=== PATIENT | male | born 1965 | race Caucasian/White ===

== ENCOUNTER 2025-04-03 09:42 | Outpatient (CLI) | payer OTHER, SELFPAY ==
--- NOTE | 2025-04-03 10:15 | MR_ITS ---
[address] [address] Phone:?[phone] Fax:?[phone] Referring Physician Information: Janelle Scott [address] [facility] [address] Phone:?[phone] Fax:?[phone] Patient:Shakila Garcia D.O.B:?1965 Sex:?Male Phone:?[phone] [facility] MRN:?[id number] Exam Date:?04/03/2025 EXAM: MRI of the LEFT SHOULDER WITHOUT CONTRAST CLINICAL HISTORY: Ongoing decreased range of motion of the left shoulder. Injury pushing something at work. COMPARISONS: Plain radiographs 03/20/2025. TECHNICAL: MRI sequences of the left shoulder: Axials: PD, T2 Coronals: PD, STIR, T2 Sagittals: PD, T2 SEDATION: None CONTRAST: None FINDINGS: Bones: No fracture or suspicious bone marrow signal abnormality. Coracoacromial arch: Acromion: No os acromiale. Type I-II acromion. Acromioclavicular joint: Marked osteoarthritis. Coracoclavicular ligament: The coracoclavicular ligament is intact. Rotator cuff muscles/tendons: Supraspinatus: Extensive ill-defined intrasubstance/interstitial partial tearing throughout the supraspinatus tendon superimposed upon moderate supraspinatus tendinopathy. No muscular atrophy. Infraspinatus: The infraspinatus tendon and muscle are intact. Teres minor: The teres minor tendon and muscle are intact. Subscapularis: 1.0 x 1.0 cm split longitudinal intrasubstance/interstitial tear within the superior portion of the subscapularis tendon insertion superimposed upon marked subscapularis tendinopathy. No muscular atrophy. Labrum and glenohumeral joint: Extensive ill-defined tearing of the anterior, anteroinferior, and inferior portions of the labrum and fraying of the posterosuperior portion of the labrum. Physiologic amount of joint fluid. No discrete chondral defect or subchondral bone marrow edema/cystic change is seen. No convincing evidence of capsular edema or thickening although evaluation is suboptimal because of lack of joint distention. Proximal biceps tendon, long head and short heads: Medial dislocation of the proximal long head of the biceps tendon from the bicipital groove extending into the split longitudinal intrasubstance/interstitial subscapularis tendon tear. The short head is intact. Bursae: Subacromial/subdeltoid: No convincing subacromial bursal thickening/bursitis. Subcoracoid: No convincing subcoracoid bursal thickening/bursitis. IMPRESSION: 1. 1.0 x 1.0 cm split longitudinal intrasubstance/interstitial tear within the superior portion of the subscapularis tendon insertion superimposed upon marked subscapularis tendinopathy. 2. Medial dislocation of the proximal long head of the biceps tendon from the bicipital groove extending into the split longitudinal intrasubstance/interstitial subscapularis tendon tear. 3. Extensive ill-defined intrasubstance/interstitial partial tearing throughout the supraspinatus tendon superimposed upon moderate supraspinatus tendinopathy. 4. Extensive ill-defined tearing of the anterior, anteroinferior, and inferior portions of the labrum and fraying of the posterosuperior portion of the labrum. 5. Marked acromioclavicular joint osteoarthritis. 6. No rotator cuff muscular atrophy. RCB Electronically signed on 04/03/2025 12:10:00 PM by Leonardo Doty M.D.
== END 2025-04-03 09:43 | disposition home or self-care (01) ==
LOC: MRI 09:45
PROVIDERS: Visit Provider Physician Assistant Surgical
DX: M25.512 Pain in left shoulder (principal); S43.432A Superior glenoid labrum lesion of left shoulder, initial encounter; M75.102 Unspecified rotator cuff tear or rupture of left shoulder, not specified as traumatic; M19.012 Primary osteoarthritis, left shoulder; S49.92XA Unspecified injury of left shoulder and upper arm, initial encounter
CPT/HCPCS: 73221

== ENCOUNTER 2025-06-01 06:48 | Day surgery (SDC) | payer OTHER, SELFPAY ==
[2025-06-01] VITALS (17 sets, daily range): BP systolic 106–143; BP diastolic 73–94; PULSE 67–78; RESP 16; TEMP 36.2–36.7; O2SAT 92–98; BMI 36.9
--- NOTE | 2025-06-01 07:11 | W.PM.H&PU ---
History & Physical Update History & Physical Update H&P Reviewed and patient assessed: No changes noted
[2025-06-01] MEDS: EPINEPHrine 1 MG in SODIUM CHLORIDE IRRIG SOLUTION 3,000 ML 9003 MG IRRIGATION ×5 (07:15→10:05)
[2025-06-01] MEDS: LACTATED RINGERS 1000 ML 1,000 ML 100 ML IV ×2 (07:30→10:36)
[2025-06-01] MEDS: SODIUM CHLORIDE 0.9 % (FLUSH) 10 ML SYRINGE IVF (07:59)
[2025-06-01] MEDS: INSULIN REGULAR, HUMAN 100 UNIT/ML VIAL 10 UNIT SUBCUT ×2 (08:03→12:56)
[2025-06-01] MEDS: MIDAZOLAM HCL 1 MG/ML inj IVP (08:29)
--- NOTE | 2025-06-01 08:36 | SUR.PREOP ---
TIME?OUT:?0825 PT/RN/MDA?VERIFICATION?OF?SURGICAL?SITE,?PROCEDURE,?AND?CONSENT OBTAINED?PRIOR?TO?INVASIVE?PROCEDURE.
[2025-06-01] MEDS: SODIUM CHLORIDE IRRIG SOLUTION 3,000 ML, EPINEPHrine 1 MG IRRIGATION (11:00)
[2025-06-01] MEDS: EPINEPHrine 1 MG in SODIUM CHLORIDE IRRIG SOLUTION 3,000 ML 6000 MG IRRIGATION (11:00)
--- NOTE | 2025-06-01 11:14 | PM.ORPRC ---
Procedure Note Date of procedure: 06/01/25 Procedure: PREOPERATIVE DIAGNOSES: 1. Left shoulder rotator cuff tear. 2. Left shoulder long head of biceps partial-thickness tearing with subluxation / dislocation of the bicipital groove 3. Left shoulder AC joint arthrosis, primary, moderate -severe 4. Left shoulder subacromial impingement syndrome. POSTOPERATIVE DIAGNOSES: 1. Left shoulder rotator cuff tear. 2. Left shoulder long head of biceps partial-thickness tearing with subluxation / dislocation of the bicipital groove 3. Left shoulder AC joint arthrosis, primary, moderate -severe 4. Left shoulder anterior labral tearing distinctly separate from the biceps pathology and more than just degenerative type tearing 5. Left shoulder subacromial impingement syndrome. NAME OF OPERATION: 1. Left shoulder arthroscopic rotator cuff repair. 2. Left shoulder arthroscopic long of the biceps tenodesis 3. Left shoulder arthroscopic distal clavicle excision 4. Left shoulder arthroscopic limited glenohumeral debridement 5. Left shoulder arthroscopic bursectomy, subacromial decompression/partial acromioplasty. SURGEON: Juwan Mahan MD MANAGER SOFTWARE: Justus Sneed PA-C. Of note, a skilled medical assistant dermatology was critical for this case to aide in patient positioning, suture manipulation, arm positioning, instrument positioning, and closure. ANESTHESIA: General plus preoperative supraclavicular block. EBL: 50 mL IMPLANTS: Arthrex 4.75 mm BioComposite SwiveLock suture anchor (x2) COMPLICATIONS: None evident INDICATIONS: The patient is a pleasant, 60-year-old male who has experienced left shoulder pain that has been increasing in recent time. Physical exam and imaging were consistent with a rotator cuff tear. Given their findings, as well as the weakness and pain, and inadequate response to nonoperative management, recommendation was made for surgery. FINDINGS: Exam under anesthesia revealed stable shoulder with excellent range of motion. The diagnostic arthroscopy revealed healthy chondral surfaces of the glenohumeral joint. The Subscapularis tendon was torn from its upper border with mild-moderate retraction. The long head of the biceps tendon was torn in a partial-thickness manner with subluxation/dislocation of the bicipital groove. The superior rotator cuff tendon was found to be torn in a partial-thickness manner on the anterior aspect of the supraspinatus. The labrum was torn somewhat significantly of the anterior labral tissue. This was distinctly separate from the biceps pathology. This also did not appear to be degenerative in nature, but rather possibly traumatic given some hemorrhagic tissue in the vicinity. No loose bodies were identified within the pouch or subscapularis recess. PROCEDURE: Following a thorough discussion of risks, benefits, and alternatives, consent was obtained and the left shoulder was marked. The patient was brought to the operating room and placed supine on the operating table. Induction of anesthesia was completed after preoperative supraclavicular block was administered in preop holding. Appropriate time out was performed identifying proper patient, site, and procedure. 3 g IV Ancef was administered within 1 hour of incision preoperatively. The left upper extremity was prepped and draped in the appropriate sterile fashion using ChloraPrep prep. This was after the patient was positioned in the beach chair with their head in neutral alignment and all bony prominences well padded. The shoulder was insufflated with 20mL of normal saline via an 18g spinal needle from a posterior approach. An 11 blade skin incision allowed a blunt trochar to be inserted and diagnostic arthroscopy to be performed with the findings as noted above. An anterior portal was established with an outside in technique. This allowed the probe to be inserted and confirm the diagnostic arthroscopic findings. The shaver was then inserted and allowed debridement of the anterior labrum as well as the biceps stump after releasing the biceps for the biceps tenodesis. Accordingly, the long head of biceps was released from the bicipital tuberosity and tenodesis performed. Initially, this was anchored with a 1.9 mm knotless FiberTak, but that anchor pulled out and was removed from the body. In its place a 4.75 mm BioComposite SwiveLock suture anchor was utilized in the bicipital groove after roughening the groove with a rasp and capturing the biceps with multiple throws from scorpion high in the groove. Following this, the upper border subscapularis was repaired after debriding the lesser tuberosity with the shaver and [place] cautery. Subscapularis was captured in horizontal mattress fashion with a fiber tape suture. The tails were brought to a single anchor in the lesser tuberosity with excellent reapproximation of the subscap tendon and good excursion/tension. Thereafter, the subacromial space was entered. Here, a complete bursectomy and partial acromioplasty/subacromial decompression was performed with a combination of radiofrequency ablator, the shaver, and a 5.5 mm bur. Additionally, distal clavicle excision was performed with the bur. 8 mm of distal clavicle was resected based on the width of our bur. Further inspection of the supraspinatus and infraspinatus rotator cuff was performed. This did not identify any further tearing of the more mid substance or posterior fibers, but the far anterior aspect near the rotator interval did show some slight partial-thickness tearing. Thus, with the anchor from the biceps tenodesis high in the bicipital groove, the eyelet sutures were utilized. These were passed in horizontal mattress fashion and tied with good anchoring/securing of this anterior supraspinatus tissue. The shoulder was placed through range of motion and found to be stable. The rotator cuff was re-probed and found to be stable. Instruments were removed. Excess fluid was drained, closure performed with 4-0 Monocryl and Steri-Strips. Dressings were applied. Sling was applied. The patient was awoken from anesthesia and transferred to the PACU in stable condition. A skilled medical assistant dermatology was critical for this case to aid in patient positioning, limb positioning, skill to manipulate arthroscopic instruments and camera, suture management, patient safety, and closure. PLAN: 1. Elbow, forearm, wrist and digit range of motion of operative extremity as tolerated. 2. Encouraged ice. 3. Oxycodone for pain as needed. 4. Sling at all times except for ROM and showering. 5. Follow up with PA visit in 1-2 weeks for wound check. Initiate physical therapy following that visit for passive range of motion. Initiate active assisted range of motion at 4-5 weeks. May do pendulums now.
--- NOTE | 2025-06-01 11:31 | P.ANES_ITS ---
Anesthesia Charges Start Date/Time Anesthesia Start Date: 06/01/25 Anesthesia Start Time: 08:40 Stop Date/Time Anesthesia Stop Date: 06/01/25 Anesthesia Stop Time: 11:31 Coding CPT Codes CPT Codes: ANESTH SURGERY OF SHOULDER - 72342 ([id number]) P3 - PATIENT W/SEVERE SYS DISEASE, QK - SHIPPING CHECKER 2-4 CNCRNT ANES PROC, QX - DELIVERY MGR SVC W/ MD MED DIRECTION
--- NOTE | 2025-06-01 11:31 | W.ANESCHARGE ---
Anesthesia Charges Start Date/Time Anesthesia Start Date: 06/01/25 Anesthesia Start Time: 08:40 Stop Date/Time Anesthesia Stop Date: 06/01/25 Anesthesia Stop Time: 11:31 Coding CPT Codes CPT Codes: ANESTH SURGERY OF SHOULDER - 87652 ([id number]) P3 - PATIENT W/SEVERE SYS DISEASE, QK - GOLF CART REPAIRER 2-4 CNCRNT ANES PROC, QX - RAIL EQUIPMENT OPERATOR SVC W/ MD MED DIRECTION
--- NOTE | 2025-06-01 11:36 | P.ANES_ITS ---
Anesthesia Charges Start Date/Time Anesthesia Start Date: 06/01/25 Anesthesia Start Time: 08:40 Stop Date/Time Anesthesia Stop Date: 06/01/25 Anesthesia Stop Time: 11:31 Coding CPT Codes CPT Codes: ANESTH SURGERY OF SHOULDER - 63958 ([id number]) QK - ASSISTANT PROFESSOR OF MATHEMATICS 2-4 CNCRNT ANES PROC, QX - SCOW HAND SVC W/ MD MED DIRECTION, P3 - PATIENT W/SEVERE SYS DISEASE
--- NOTE | 2025-06-01 11:36 | W.ANESCHARGE ---
Anesthesia Charges Start Date/Time Anesthesia Start Date: 06/01/25 Anesthesia Start Time: 08:40 Stop Date/Time Anesthesia Stop Date: 06/01/25 Anesthesia Stop Time: 11:31 Coding CPT Codes CPT Codes: ANESTH SURGERY OF SHOULDER - 92579 ([id number]) QK - PEDIATRIC OCCUPATIONAL THERAPIST 2-4 CNCRNT ANES PROC, QX - SUPERVISOR PLATE PASTING SVC W/ MD MED DIRECTION, P3 - PATIENT W/SEVERE SYS DISEASE
--- NOTE | 2025-06-01 11:36 | W.PM.NB ---
Nerve Block Nerve Block Time Seen by Provider: 08: Date Seen: 06/01/25 Type of block requested by surgeon for post-operative analgesia: supraclavicular Side: left Time out performed: Yes Verification of patient name: Yes Verification of date of : Yes Site marking: site marked Name of person performing procedure: Bert Continuous monitoring Was continuous monitoring of O2 sat, B/P, potline monitor, recorded every 15 minutes?: Yes Procedure Checklist: sterile prep, needles and gloves Ultrasound guided. Images saved: Yes Medications given in 5ml increments after negative aspiration: Ropivicaine %: 0.5 mL: 20 Needle gauge: 22 Precedex (mcg): 25 Patient tolerated procedure well: Yes Block Charges Block Charge (with Pro Fee): Brachial Plexus Use of Ultrasound Machine for Block: Yes- US Guidance/pain block
== END 2025-06-01 14:28 | disposition home or self-care (01) ==
LOC: OR 06:51
PROVIDERS: PCP Psychiatry & Neurology Psychiatry; Visit Provider Orthopaedic Surgery Sports Medicine
PROC: (CPT 29805; principal; 2025-06-01 08:45)
DX: S46.012A Strain of muscle(s) and tendon(s) of the rotator cuff of left shoulder, initial encounter (principal); M75.42 Impingement syndrome of left shoulder; M19.012 Primary osteoarthritis, left shoulder; S46.111A Strain of muscle, fascia and tendon of long head of biceps, right arm, initial encounter; S43.432A Superior glenoid labrum lesion of left shoulder, initial encounter; G89.18 Other acute postprocedural pain; Z68.36 Body mass index [BMI] 36.0-36.9, adult; E66.812 Obesity, class 2; E11.9 Type 2 diabetes mellitus without complications
CPT/HCPCS: 29827; 29828; 29826; 29822; 29824; 01630; 64415; 76942; 82962; C1713; J0169; J0330; J0690; J1100; J1815; J2250; J2371; J2405; J2704; J2795; J3010; J7120; L3670